=== PATIENT | female | born 1985 | race Caucasian/White ===

== ENCOUNTER 2017-03-23 20:07 | Emergency (ER) | payer OTHER ==
[~2017-03-23] VITALS: Ht 170.2 cm; Wt 124.8 kg
[~2017-03-23 20:07] MED LIST: ELAVIL50 MG PO; FLEXERIL10 MG PO; LEVOTHYROXINE100 MCG PO; MACROBID100 MG PO; MELOXICAM15 MG PO; NAPROSYN500 MG PO; NICOTINE PATCH1 EAC1 TD; OXYCODONE HCL10 MG PO; PERCOCET 5/31 TABLET PO; TRILEPTAL600 MG PO; TYLENOL REGULA325 MG PO; VICODIN 5-3001 EACH PO
[2017-03-23 21:28] LABS: ADD MIUA? YES; BILIRUBIN NEGATIVE; BLOOD LARGE; GLUCOSE (STRIP) NEGATIVE; KETONES 5; LEUKOCYTES TRACE; NITRITE POSITIVE; PROTEIN (STRIP) 100; SPECIFIC GRAVITY 1.029 (1.000-1.030); UROBILINOGEN 0.2 MG/DL (0.2-1.0)
[2017-03-23 21:29] LABS: COLOR DK YELLOW ((YELLOW))
[2017-03-23 21:44] LABS: BACTERIA 4+ /HPF; EPITHELIAL CELLS 3+ /HPF; MUCUS 4+ /LPF
[2017-03-23 22:11] LABS: HEMATOCRIT 37.4 % (36.0-46.0); MCH 29.7 PG (29.0-34.0); MCHC 32.9 G/DL (30.0-36.0); MCV 90.3 FL (83-99); MEAN PLAT.VOLUME 10.7 uM^3 (9.5-12.4); PLATELET COUNT 191 K/uL (156-360); RBC DIS.WIDTH-CV 12.4 % (11.8-14.6); RBC DIS.WIDTH-SD 40.6 % (39-53); RED BLOOD COUNT 4.14 M/uL (3.80-5.20); WHITE BLOOD COUNT 6.2 K/uL (4.1-10.2)
[2017-03-23 22:22] LABS: CHLORIDE 109 mEq/L (99-109); POTASSIUM 4.2 mEq/L (3.7-5.4); SODIUM 141 mEq/L (136-147)
[2017-03-23 22:24] LABS: GLUCOSE 87 mg/dL (70-99)
[2017-03-23 22:25] LABS: ANION GAP 10 MEQ/L (2-14)
[2017-03-23 22:26] LABS: TOTAL BILIRUBIN 0.3 mg/dL (0.0-1.0)
[2017-03-23 22:28] LABS: ALKALINE PHOSPHATASE 69 IU/L (3-129); GFR ESTIMATE (CALCULATED) > 59 mL/min/
[2017-03-23 22:29] LABS: UREA NITROGEN (BUN) 11 mg/dL (9-23)
[2017-03-23 22:31] LABS: LIPASE 19 U/L (1.0-51.0); QUANTITATIVE HCG < 4.0 MIU/ML
[2017-03-23] MEDS ORDERED: KEFLEX500 MG PO (22:34)
[2017-03-23] MEDS ORDERED: PYRIDIUM200 MG PO (22:34)
[2017-03-23 22:41] VITALS: BP 147/108
== END 2017-03-23 22:42 | disposition home or self-care (01) ==
LOC: EME 20:07
PROVIDERS: Physician Assistant
DX: N39.0 Urinary tract infection, site not specified (principal); R31.9 Hematuria, unspecified; E03.9 Hypothyroidism, unspecified; Z87.442 Personal history of urinary calculi; Z90.49 Acquired absence of other specified parts of digestive tract; Z90.710 Acquired absence of both cervix and uterus; F17.200 Nicotine dependence, unspecified, uncomplicated
CPT/HCPCS: 74176; 80053; 81003; 83690; 84702; 85027; 87077; 87086; 87186; 99281; 99284; J1885

== ENCOUNTER 2018-01-24 18:21 | Emergency (ER) | payer OTHER ==
[~2018-01-24] VITALS: Ht 170.2 cm; Wt 131.1 kg
[~2018-01-24 18:21] MED LIST changes: +KEFLEX500 MG PO; +PYRIDIUM200 MG PO
[2018-01-24] MEDS ORDERED: MOBIC7.5 MG PO (20:08)
[2018-01-24 20:43] VITALS: BP 118/72
== END 2018-01-24 20:44 | disposition home or self-care (01) ==
LOC: EME 18:21
DX: S86.811A Strain of other muscle(s) and tendon(s) at lower leg level, right leg, initial encounter (principal); X50.1XXA Overexertion from prolonged static or awkward postures, initial encounter; E03.9 Hypothyroidism, unspecified; Z88.5 Allergy status to narcotic agent; Z91.040 Latex allergy status; Z88.6 Allergy status to analgesic agent; F17.200 Nicotine dependence, unspecified, uncomplicated
CPT/HCPCS: 73564; 99281; 99283; J1885

== ENCOUNTER 2018-06-27 23:39 | Emergency (ER) | payer OTHER ==
[~2018-06-27] VITALS: Ht 170.2 cm; Wt 122.7 kg
[~2018-06-27 23:39] MED LIST changes: +MOBIC7.5 MG PO
[2018-06-28] MEDS ORDERED: INDOCIN50 MG PO (06:09)
[2018-06-28 06:43] VITALS: BP 112/63
== END 2018-06-28 06:30 | disposition home or self-care (01) ==
LOC: EME 23:39
PROC: 0H9NXZZ Drainage of Left Foot Skin, External Approach (ICD-10-PCS; principal; 2018-06-27)
DX: S90.862A Insect bite (nonvenomous), left foot, initial encounter (principal); L08.9 Local infection of the skin and subcutaneous tissue, unspecified; W57.XXXA Bitten or stung by nonvenomous insect and other nonvenomous arthropods, initial encounter; Z91.14 Patient's other noncompliance with medication regimen; E03.9 Hypothyroidism, unspecified; F17.200 Nicotine dependence, unspecified, uncomplicated
CPT/HCPCS: 80048; 83605; 85025; 86618; 87040; 87070; 87075; 87205; 99281; 99285; J0295; J3010; J3370; J7030; J7050

== ENCOUNTER 2018-07-01 07:50 | Inpatient (IN) | payer OTHER ==
[~2018-07-01] VITALS: Ht 170.2 cm; Wt 122.3 kg
[~2018-07-01 07:50] MED LIST changes: +INDOCIN50 MG PO
[2018-07-01 09:37] LABS: HEMATOCRIT 37.6 % (36.0-46.0); MCH 31.1 PG (29.0-34.0); MCHC 34.6 G/DL (30.0-36.0); PLATELET COUNT 226 K/uL (156-360); RBC DIS.WIDTH-CV 12.1 % (11.8-14.6); RBC DIS.WIDTH-SD 39.9 % (39-53); RED BLOOD COUNT 4.18 M/uL (3.80-5.20); WHITE BLOOD COUNT 7.5 K/uL (4.1-10.2)
[2018-07-01 09:46] LABS: CHLORIDE 107 mEq/L (99-109); POTASSIUM 3.6 mEq/L (3.7-5.4); SODIUM 142 mEq/L (136-147)
[2018-07-01 09:48] LABS: GLUCOSE 97 mg/dL (70-99)
[2018-07-01 09:51] LABS: CREATININE 0.9 mg/dL (0.6-1.3); GFR ESTIMATE (CALCULATED) > 59 mL/min/
[2018-07-01 09:52] LABS: UREA NITROGEN (BUN) 12 mg/dL (9-23)
[2018-07-01] MEDS ORDERED: DOXYCYCLINE HY100 MG PO (13:11)
[2018-07-01 15:35] VITALS: BP 109/57
[2018-07-01 23:06] VITALS: BP 111/65
[2018-07-02 05:41] LABS: HEMATOCRIT 35.8 % (36.0-46.0); HEMOGLOBIN 11.7 G/DL (11.9-15.5); MCH 30.5 PG (29.0-34.0); MCHC 32.7 G/DL (30.0-36.0); MCV 93.2 FL (83-99); PLATELET COUNT 162 K/uL (156-360); RBC DIS.WIDTH-CV 12.2 % (11.8-14.6); RED BLOOD COUNT 3.84 M/uL (3.80-5.20); WHITE BLOOD COUNT 4.9 K/uL (4.1-10.2)
[2018-07-02 06:12] LABS: CHLORIDE 109 MEQ/L (99-109); CREATININE 0.8 MG/DL (0.6-1.3); GFR ESTIMATE (CALCULATED) > 59 mL/min/; GLUCOSE 116 mg/dL (70-99); SODIUM 142 MEQ/L (136-147); UREA NITROGEN (BUN) 13 mg/dL (9-23)
[2018-07-02 07:14] LABS: BASOPHIL (%) 0.6 % (0-1); EOSINOPHIL (%) 3.1 % (0-5); EOSINOPHIL COUNT 0.2 K/uL (0-0.3); IMMATURE GRANULOCYTE (%) 0.2 % (0.0-0.7); LYMPHOCYTE (%) 57.2 % (15-42); LYMPHOCYTE COUNT 2.8 K/uL (1.0-2.8); MONOCYTE (%) 9.4 % (3-12); MONOCYTE COUNT 0.5 K/uL (0-0.8); NEUTROPHIL (%) 29.5 % (45-76); NEUTROPHIL COUNT 1.4 K/uL (1.8-6.4)
[2018-07-02 07:25] VITALS: BP 119/81
[2018-07-02 15:00] VITALS: BP 133/90
[2018-07-02 23:17] VITALS: BP 127/81
[2018-07-03 07:20] VITALS: BP 127/83
[2018-07-03 15:00] VITALS: BP 103/68
[2018-07-04 07:18] VITALS: BP 80/46
[2018-07-04 10:00] VITALS: BP 96/54
[2018-07-04 15:35] VITALS: BP 115/65
[2018-07-04 22:50] VITALS: BP 150/78
[2018-07-05 07:20] VITALS: BP 103/61
[2018-07-05 09:41] LABS: CREATININE 0.7 MG/DL (0.6-1.3); GFR ESTIMATE (CALCULATED) > 59 mL/min/
[2018-07-05 15:28] VITALS: BP 109/60
[2018-07-05 23:50] VITALS: BP 131/85
[2018-07-06 06:33] LABS: BASOPHIL (%) 0.5 % (0-1); EOSINOPHIL (%) 3.7 % (0-5); EOSINOPHIL COUNT 0.2 K/uL (0-0.3); HEMATOCRIT 33.2 % (36.0-46.0); HEMOGLOBIN 11.3 G/DL (11.9-15.5); IMMATURE GRANULOCYTE (%) 0.5 % (0.0-0.7); LYMPHOCYTE (%) 32.5 % (15-42); LYMPHOCYTE COUNT 1.9 K/uL (1.0-2.8); MCH 30.5 PG (29.0-34.0); MCV 89.5 FL (83-99); MONOCYTE (%) 6.2 % (3-12); MONOCYTE COUNT 0.4 K/uL (0-0.8); NEUTROPHIL (%) 56.6 % (45-76); NEUTROPHIL COUNT 3.4 K/uL (1.8-6.4); NRBC (%) 0.5 /100 WBC (0-0); RBC DIS.WIDTH-CV 12.3 % (11.8-14.6); RBC DIS.WIDTH-SD 39.9 % (39-53); RED BLOOD COUNT 3.71 M/uL (3.80-5.20); WHITE BLOOD COUNT 5.9 K/uL (4.1-10.2)
[2018-07-06 07:06] LABS: PLAT.SUFFICIENCY DECREASED
[2018-07-06 07:09] LABS: PLATELET COUNT UNABLE TO REPORT K/uL (156-360)
[2018-07-06 07:11] LABS: CHLORIDE 110 MEQ/L (99-109); CREATININE 0.7 MG/DL (0.6-1.3); GFR ESTIMATE (CALCULATED) > 59 mL/min/; GLUCOSE 92 mg/dL (70-99); POTASSIUM 4.2 MEQ/L (3.7-5.4); SODIUM 142 MEQ/L (136-147); UREA NITROGEN (BUN) 12 mg/dL (9-23)
[2018-07-06 07:34] VITALS: BP 117/83
[2018-07-06 08:12] VITALS: BP 112/80
[2018-07-06] MEDS ORDERED: BACTRIM,SEPT1 TABLET PO (11:46)
[2018-07-06] MEDS ORDERED: NAPROXEN500 MG PO (11:49)
== END 2018-07-06 16:39 | disposition home or self-care (01) | DRG 603 ==
LOC: EME 07:50 → 5EAST 12:10 → EDOF 12:10 → ENRESERV 12:19 → 5EAST 15:21
PROVIDERS: Hospitalist; Nurse Practitioner Family; Student in an Organized Health Care Education/Training Program
PROC: 0H9NXZZ Drainage of Left Foot Skin, External Approach (ICD-10-PCS; principal; 2018-07-02)
DX: L03.116 Cellulitis of left lower limb (principal); L02.612 Cutaneous abscess of left foot; T63.331A Toxic effect of venom of brown recluse spider, accidental (unintentional), initial encounter; I95.9 Hypotension, unspecified; E03.9 Hypothyroidism, unspecified; D68.59 Other primary thrombophilia; E72.12 Methylenetetrahydrofolate reductase deficiency; E66.01 Morbid (severe) obesity due to excess calories; Z68.41 Body mass index [BMI] 40.0-44.9, adult; K58.0 Irritable bowel syndrome with diarrhea; G47.00 Insomnia, unspecified; F41.9 Anxiety disorder, unspecified; F32.9 Major depressive disorder, single episode, unspecified; F90.9 Attention-deficit hyperactivity disorder, unspecified type; R30.9 Painful micturition, unspecified; F17.210 Nicotine dependence, cigarettes, uncomplicated; Z91.14 Patient's other noncompliance with medication regimen; Z71.3 Dietary counseling and surveillance; Z90.710 Acquired absence of both cervix and uterus; Z91.040 Latex allergy status; Z88.5 Allergy status to narcotic agent; Z88.6 Allergy status to analgesic agent
CPT/HCPCS: 73630; 80048; 80202; 81003; 82565; 83605; 85025; 85027; 86618; 87040; 87070; 87075; 87076; 87185; 87205; 87641; 93971; 99281; 99285; A6260; C1753; J0295; J0690; J0692; J1200; J1644; J1885; J2405; J2543; J3010; J3370; J7030; J7050